=== PATIENT | male | born 1995 | race Caucasian/White ===

== ENCOUNTER 2019-03-08 15:41 | Emergency (ER) | payer BC ==
[~2019-03-08] VITALS: Ht 185.4 cm; Wt 116.6 kg
[~2019-03-08 15:41] MED LIST: ANTIBIOTIC; NAPROXEN375 MG PO; TRAMADOL HCL50 MG PO; ZOFRAN4 MG PO
--- OUTSIDE RECORDS SUMMARY | 2019-03-08 15:44 | XMS ---
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 Pradeep has no Care Guidelines for this patient. Radha VISIT COUNT (12 MO.) 3 [facility] TOTAL 3 NOTE: Visits indicate total known visits. ED/C VISIT TRACKING (12 MO.) 03/08/2019 15:42 [facility] [place] TYPE: Emergency COMPLAINT: - ABD PAIN, EXTREMITY NUMBNESS 09/01/2018 17:53 [facility] [place] TYPE: Emergency COMPLAINT: - FLANK PAIN/NASUEA DIAGNOSES: - Personal history of nicotine dependence - Calculus of kidney with calculus of ureter - Unspecified abdominal pain 08/25/2018 23:12 [facility] [place] TYPE: Emergency COMPLAINT: - ABD PAIN,NAUSEA DIAGNOSES: - Nicotine dependence, unspecified, uncomplicated - Calculus of kidney with calculus of ureter - Unspecified abdominal pain INPATIENT VISIT TRACKING (12 MO.) No inpatient visits to display in this time frame [email or web address]
[2019-03-08] MEDS ORDERED: ZOFRAN4 MG PO (18:27)
[2019-03-08] MEDS ORDERED: NORCO 5-325 TA1 EACH PO (18:27)
== END 2019-03-08 18:48 | disposition home or self-care (01) ==
LOC: ED 15:41
DX: N13.2 Hydronephrosis with renal and ureteral calculous obstruction (principal); Z87.891 Personal history of nicotine dependence
CPT/HCPCS: 74176; 80053; 81001; 85025; 96374; 96375; 99284-25; J1170; J1885; J2405

== ENCOUNTER 2019-03-10 09:30 | Emergency (ER) | payer BC ==
[~2019-03-10] VITALS: Ht 185.4 cm; Wt 116.6 kg
[~2019-03-10 09:30] MED LIST changes: +NORCO 5-325 TA1 EACH PO
--- OUTSIDE RECORDS SUMMARY | 2019-03-10 09:34 | XMS ---
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 Pradeep has no Care Guidelines for this patient. Care History Medical/Surgical 03/09/2019 [facility] - [facility] CONTACTED PATIENT PROVIDED PROVIDER INFORMATION IN THE AREA FOR PATIENT TO ESTABLISH CARE WITH. - PATIENT STATED HE WOULD BE IN CONTACT WITH THE PROVIDERS AND SEE ABOUT ESTABLISHING CARE. E.Itzel. VISIT COUNT (12 MO.) 4 [facility] H. TOTAL 4 NOTE: Visits indicate total known visits. ED/UCC VISIT TRACKING (12 MO.) 03/10/2019 09:32 [facility] [place] TYPE: Emergency COMPLAINT: - VOMITING/ABD,FLANK PAIN 03/08/2019 15:42 [facility] [place] TYPE: Emergency [...] visits to display in this time frame [email or web address]
[2019-03-10] MEDS ORDERED: FLOMAX0.4 MG PO (09:43)
[2019-03-10] MEDS ORDERED: PROMETHAZINE HC25 M1 PO (11:40)
[2019-03-10] MEDS ORDERED: PROMETHAZINE HC25 MG PR (12:11)
== END 2019-03-10 12:19 | disposition home or self-care (01) ==
LOC: ED 09:30
DX: N20.0 Calculus of kidney (principal); E86.0 Dehydration; R11.2 Nausea with vomiting, unspecified; Z79.899 Other long term (current) drug therapy
CPT/HCPCS: 81001; 96361; 96374; 96375; 99284-25; J1885; J2270; J2550; J7030

== ENCOUNTER 2019-11-15 15:49 | Emergency (ER) | payer BC ==
[~2019-11-15] VITALS: Ht 185.4 cm; Wt 121.7 kg
[~2019-11-15 15:49] MED LIST changes: +FLOMAX0.4 MG PO; +PROMETHAZINE HC25 M1 PO; +PROMETHAZINE HC25 MG PR
[2019-11-15] MEDS ORDERED: AMOXICILLIN500 MG PO (17:27)
== END 2019-11-15 17:56 | disposition home or self-care (01) ==
LOC: ED 15:49
DX: J02.0 Streptococcal pharyngitis (principal)
CPT/HCPCS: 71045; 87502; 87880; 99283-25; A9270